=== PATIENT | female | born 1935 | race Two or more races ===

== ENCOUNTER 2021-01-24 16:24 | Inpatient (IN) | payer OTHER ==
[~2021-01-24] VITALS: Ht 160 cm; Wt 54.4 kg
[2021-01-24] MEDS ORDERED: NASAL MIST126 ML (16:48)
[2021-01-24] MEDS ORDERED: MEMANTINE HCL10 MG PO (16:48)
[2021-01-24] MEDS ORDERED: SIMVASTATIN5 MG PO (16:49)
[2021-01-24] MEDS ORDERED: ECOTRIN81 MG PO (16:49)
[2021-01-26] MEDS ORDERED: MIRTAZAPINE15 MG (14:39)
[2021-01-26] MEDS ORDERED: DONEPEZIL HCL5 MG (14:39)
[2021-01-26] MEDS ORDERED: BUSPIRONE HCL5 MG (14:40)
== END 2021-02-04 19:26 | disposition home or self-care (01) | DRG 871 ==
LOC: ER 16:24 → MEDI 19:37 → ER 01-25 02:07 → MEDI 02-04 19:26
PROVIDERS: ADMIT Internal Medicine; ATTEND Internal Medicine
PROC: 4A12X4Z Monitoring of Cardiac Electrical Activity, External Approach (ICD-10-PCS; 2021-01-24)
PROC: BW25ZZZ Computerized Tomography (CT Scan) of Chest, Abdomen and Pelvis (ICD-10-PCS; 2021-01-25)
PROC: B020ZZZ Computerized Tomography (CT Scan) of Brain (ICD-10-PCS; 2021-01-25)
PROC: 4A033R1 Measurement of Arterial Saturation, Peripheral, Percutaneous Approach (ICD-10-PCS; 2021-01-25)
PROC: 3E0F7SF Introduction of Other Gas into Respiratory Tract, Via Natural or Artificial Opening (ICD-10-PCS; 2021-01-30)
PROC: B54CZZZ Ultrasonography of Left Lower Extremity Veins (ICD-10-PCS; 2021-01-30)
PROC: 0DH63UZ Insertion of Feeding Device into Stomach, Percutaneous Approach (ICD-10-PCS; principal; 2021-02-01)
PROC: 0DJ08ZZ Inspection of Upper Intestinal Tract, Via Natural or Artificial Opening Endoscopic (ICD-10-PCS; 2021-02-01)
DX: A41.9 Sepsis, unspecified organism (principal); G92 Toxic encephalopathy; N17.8 Other acute kidney failure; N39.0 Urinary tract infection, site not specified; E87.0 Hyperosmolality and hypernatremia; R13.19 Other dysphagia; I82.412 Acute embolism and thrombosis of left femoral vein; I82.432 Acute embolism and thrombosis of left popliteal vein; E88.09 Other disorders of plasma-protein metabolism, not elsewhere classified; E86.0 Dehydration; K29.60 Other gastritis without bleeding; K44.9 Diaphragmatic hernia without obstruction or gangrene; G30.8 Other Alzheimer's disease; F02.80 Dementia in other diseases classified elsewhere, unspecified severity, without behavioral disturbance, psychotic disturbance, mood disturbance, and anxiety; Z20.822 Contact with and (suspected) exposure to COVID-19